=== PATIENT | female | born 1955 | race Caucasian/White ===

== ENCOUNTER → 2023-07-19 10:36 | Outpatient (REF) | payer MEDICARE, OTHER, SELFPAY ==
[2023-07-19 11:20] LABS: % Basophils 0.5 % (0-2); % Eosinophils 1.2 % (0-6); % Immature Granulocytes 0.3 % (0-0.5); % Lymphocytes 15.9 % (20.5-51.1); % Monocytes 5.5 % (1.7-9.3); % Neutrophils 76.6 % (42.2-75.2); Absolute Basophils 0.1 10^3/uL (0-0.2); Absolute Eosinophils 0.2 10^3/uL (0-0.7); Absolute Lymphocytes 1.9 10^3/uL (1.2-3.4); Absolute Monocytes 0.7 10^3/uL (0.1-0.6); Absolute Neutrophils 9.3 10^3/uL (1.4-6.5); Hematocrit 37.9 % (37.0-47.0); Mean Corp Hgb Conc. 31.7 g/dL (33.0-37.0); Mean Corpuscular Hgb 28.8 pg (27.0-31.0); Mean Corpuscular Volume 91.1 fL (81.0-99.0); Mean Platelet Volume 11.2 fL (7.4-10.4); Nucleated Red Blood Cells % 0 %; Platelet Count 261 10^3/uL (130-400); Red Blood Cell Count 4.16 10^6/uL (4.20-5.40); Red Cell Dist. Width 14.5 % (11.5-14.5); White Blood Cell Count 12.2 10^3/uL (4.8-10.8)
[2023-07-19 13:18] LABS: ALT (SGPT) 17 U/L (0-35); AST (SGOT) 23 U/L (14-36); Albumin 3.5 g/dl (3.5-5.0); Alkaline Phosphatase 128 U/L (38-126); Blood Urea Nitrogen 34 mg/dl (7-17); Calcium 9.5 mg/dl (8.4-10.2); Carbon Dioxide 22 mmol/L (22-30); Chloride 109 mmol/L (98-107); Glucose 83 mg/dl (70-99); Potassium 4.2 mmol/L (3.5-5.1); Sodium 140 mmol/L (135-145); Total Bilirubin 1.1 mg/dl (0.2-1.3); Total Protein 6.1 g/dl (6.3-8.2); eGFR 44.51
[2023-07-21 11:07] LABS: Myeloperoxidase Antibody 49 AU/mL (0-19); Serine Protease-3, IgG 0 AU/mL (0-19)
== END ==
LOC: REG 10:36
PROVIDERS: ATTENDING PHYSICIAN Internal Medicine Rheumatology; FAMILY PHYSICIAN Internal Medicine; OTHER PHYSICIAN Internal Medicine Critical Care Medicine; REFERRING PHYSICIAN Internal Medicine Cardiovascular Disease
DX: M31.7 Microscopic polyangiitis (principal); M54.2 Cervicalgia
CPT/HCPCS: 36415; 72052; 80053; 83516; 85025; 86140

== ENCOUNTER → 2023-07-20 09:45 | Outpatient (REF) | payer MEDICARE, OTHER, SELFPAY ==
[2023-07-20 20:09] LABS: Urine Albumin Negative (Neg - Trace); Urine Bilirubin Negative (Negative); Urine Character Clear (Clear); Urine Color Yellow; Urine Glucose Negative (Negative); Urine Ketone Negative (Negative); Urine Leukocyte Trace (Negative); Urine Nitrite Negative (Negative); Urine Occult Blood Negative (Negative); Urine Specific Gravity 1.015 (<1.030); Urine Urobilinogen Negative (Neg - 1+)
[2023-07-20 20:23] LABS: Urine Bacteria Few (Negative); Urine Red Blood Cell 0-2 /HPF (0-2); Urine White Cell 26-30 /HPF (0-5)
== END ==
LOC: CLAB 09:45
PROVIDERS: ATTENDING PHYSICIAN Physician Assistant
DX: R32 Unspecified urinary incontinence (principal)
CPT/HCPCS: 81003; 81015; 87086; 87088; 87186

== ENCOUNTER → 2023-08-02 10:12 | Outpatient (REF) | payer MEDICARE, OTHER, SELFPAY ==
--- NOTE | 2023-08-02 12:02 | CARDSERVDEF ---
Echocardiogram with Definity completed after protocol screening completed. Allergies verified.
Patent IV site: _new site 24 P on 3rd attempt by [email or web address] after RN unable to cannulate tiny veins____
IV site flushed with 0.9% NaCl pre and post administration.
Diluted bolus method utilized to enhance visualization of ventricular abrams.
Total volume given: __6.0__ mL
Patient tolerated all procedures well without complications.
site dcd at completion of test.
== END ==
LOC: RCS 10:12
PROVIDERS: ATTENDING PHYSICIAN Internal Medicine Cardiovascular Disease; FAMILY PHYSICIAN Internal Medicine; OTHER PHYSICIAN Internal Medicine Rheumatology; REFERRING PHYSICIAN Internal Medicine Critical Care Medicine
DX: I49.3 Ventricular premature depolarization (principal)
CPT/HCPCS: 93306; 93307; Q9957

== ENCOUNTER → 2023-08-17 11:00 | Outpatient (REF) | payer MEDICARE, OTHER, SELFPAY ==
[2023-08-17 12:14] LABS: INR 1.09; PT 14.1 Sec (11.4-14.6)
[2023-08-17 12:15] LABS: APTT 29.7 Sec (23.4-35.0)
[2023-08-17 13:18] LABS: Free T4 1.08 ng/dl (0.78-2.19)
[2023-08-17 13:26] LABS: TSH 0.15 uIU/ml (0.47-4.68)
== END ==
LOC: REG 11:00
PROVIDERS: ATTENDING PHYSICIAN Internal Medicine; OTHER PHYSICIAN Internal Medicine Cardiovascular Disease; OTHER PHYSICIAN Internal Medicine Critical Care Medicine; OTHER PHYSICIAN Internal Medicine Hematology & Oncology; OTHER PHYSICIAN Internal Medicine Rheumatology
DX: T14.8XXA Other injury of unspecified body region, initial encounter (principal); Z79.899 Other long term (current) drug therapy
CPT/HCPCS: 36415; 84439; 84443; 85610; 85730

== ENCOUNTER → 2023-08-28 12:56 | Outpatient (REF) | payer MEDICARE, OTHER, SELFPAY | LOC: HWRAD 12:56 | PROVIDERS: ATTENDING PHYSICIAN Obstetrics & Gynecology; FAMILY PHYSICIAN Internal Medicine | DX: Z78.0 Asymptomatic menopausal state (principal); Z12.31 Encounter for screening mammogram for malignant neoplasm of breast | CPT/HCPCS: 77063; 77067; 77080 ==

== ENCOUNTER → 2023-10-20 10:45 | Outpatient (REF) | payer MEDICARE, OTHER, SELFPAY ==
[2023-10-20 11:38] LABS: % Basophils 0.7 % (0-2); % Eosinophils 1.2 % (0-6); % Immature Granulocytes 0.5 % (0-0.5); % Lymphocytes 16.9 % (20.5-51.1); % Monocytes 5.1 % (1.7-9.3); % Neutrophils 75.6 % (42.2-75.2); Absolute Basophils 0.1 10^3/uL (0-0.2); Absolute Eosinophils 0.2 10^3/uL (0-0.7); Absolute Immature Granulocytes 0.1 10^3/uL (0-0.05); Absolute Lymphocytes 2.2 10^3/uL (1.2-3.4); Absolute Monocytes 0.7 10^3/uL (0.1-0.6); Absolute Neutrophils 9.9 10^3/uL (1.4-6.5); Hematocrit 34.4 % (37.0-47.0); Mean Corpuscular Hgb 28.4 pg (27.0-31.0); Mean Corpuscular Volume 88.7 fL (81.0-99.0); Mean Platelet Volume 10.9 fL (7.4-10.4); Nucleated Red Blood Cells % 0 %; Platelet Count 403 10^3/uL (130-400); Red Blood Cell Count 3.88 10^6/uL (4.20-5.40); Red Cell Dist. Width 14.6 % (11.5-14.5); White Blood Cell Count 13.1 10^3/uL (4.8-10.8)
[2023-10-20 12:24] LABS: ALT (SGPT) 13 U/L (0-35); AST (SGOT) 22 U/L (14-36); Albumin 3.9 g/dl (3.5-5.0); Alkaline Phosphatase 133 U/L (38-126); Blood Urea Nitrogen 20 mg/dl (7-17); Calcium 9.6 mg/dl (8.4-10.2); Carbon Dioxide 27 mmol/L (22-30); Chloride 104 mmol/L (98-107); Glucose 88 mg/dl (70-99); Potassium 4.6 mmol/L (3.5-5.1); Sodium 140 mmol/L (135-145); Total Bilirubin 0.9 mg/dl (0.2-1.3); Total Protein 6.6 g/dl (6.3-8.2); eGFR > 60.00
[2023-10-20 16:26] LABS: Urine Albumin Negative (Neg - Trace); Urine Bilirubin Negative (Negative); Urine Character Clear (Clear); Urine Color Yellow; Urine Glucose Negative (Negative); Urine Ketone Negative (Negative); Urine Leukocyte Trace (Negative); Urine Nitrite Positive (Negative); Urine Occult Blood Negative (Negative); Urine Specific Gravity 1.015 (<1.030); Urine Urobilinogen Negative (Neg - 1+)
[2023-10-20 16:41] LABS: Urine Bacteria Many (Negative); Urine White Cell 16-20 /HPF (0-5)
[2023-10-20 16:49] LABS: Urine Red Blood Cell 0-2 /HPF (0-2)
== END ==
LOC: REG 10:45
PROVIDERS: ATTENDING PHYSICIAN Internal Medicine; OTHER PHYSICIAN Internal Medicine Cardiovascular Disease; OTHER PHYSICIAN Internal Medicine Critical Care Medicine; OTHER PHYSICIAN Internal Medicine Rheumatology
DX: I10 Essential (primary) hypertension (principal); I42.9 Cardiomyopathy, unspecified
CPT/HCPCS: 36415; 80053; 81003; 81015; 85025

== ENCOUNTER → 2023-11-06 12:43 | Outpatient (REF) | payer MEDICARE, OTHER, SELFPAY | LOC: WOUND 12:43 | PROVIDERS: ATTENDING PHYSICIAN Surgery; FAMILY PHYSICIAN Internal Medicine | DX: L97.212 Non-pressure chronic ulcer of right calf with fat layer exposed (principal); L97.222 Non-pressure chronic ulcer of left calf with fat layer exposed; I50.22 Chronic systolic (congestive) heart failure; N18.9 Chronic kidney disease, unspecified; D89.89 Other specified disorders involving the immune mechanism, not elsewhere classified; D80.1 Nonfamilial hypogammaglobulinemia; J45.40 Moderate persistent asthma, uncomplicated | CPT/HCPCS: 99204 ==

== ENCOUNTER → 2023-11-14 11:00 | Outpatient (REF) | payer MEDICARE, OTHER, SELFPAY | LOC: WOUND 11:00 | PROVIDERS: ATTENDING PHYSICIAN Surgery; FAMILY PHYSICIAN Internal Medicine | DX: L97.212 Non-pressure chronic ulcer of right calf with fat layer exposed (principal); L97.222 Non-pressure chronic ulcer of left calf with fat layer exposed; I50.22 Chronic systolic (congestive) heart failure; N18.9 Chronic kidney disease, unspecified; D72.829 Elevated white blood cell count, unspecified; D89.89 Other specified disorders involving the immune mechanism, not elsewhere classified; D80.1 Nonfamilial hypogammaglobulinemia; J45.40 Moderate persistent asthma, uncomplicated | CPT/HCPCS: 99213 ==

== ENCOUNTER 2023-11-21 06:26 | Day surgery (SDC) | payer MEDICARE, OTHER, SELFPAY ==
[2023-11-21 08:00] VITALS: BMI 30.3
[2023-11-21 08:15] VITALS: BP 128/60
--- NOTE | 2023-11-21 08:15 | W.SUR.PREOP ---
Pre-Operative Surgical Note
-
I have examined this patient prior to the performance of the scheduled procedure.
The patient's condition is unchanged from the time of the current History and
Physical and the patient is able to undergo the scheduled procedure.
[2023-11-21 08:24] VITALS: BMI 30.3
[2023-11-21] MEDS: NORMOSOL-R/PLASMALYTE-A 1000 IV (08:29)
[2023-11-21] MEDS: TYLENOL 1000 MG PO (08:29)
[2023-11-21 10:40] VITALS: BP 116/56; BP_SYST 12
[2023-11-21 10:55] VITALS: BP 130/64; BP_SYST 12
[2023-11-21 11:10] VITALS: BP 128/69; BP_SYST 17
[2023-11-21 11:20] VITALS: BP 128/69
[2023-11-21 11:50] VITALS: BP 150/81
--- NOTE | 2023-11-21 12:09 | W.IMMPOSTOP ---
Surgical Immed Post Op Note
-
Primary Surgeon: NAYA Ferrera MD
Assisting Surgeon:
Pre-op Diagnosis: bilateral lower extremity wounds, nonpressure
Post-op Diagnosis: same
Procedure Performed: bilateral lower extremity split-thickness skin graft donor site left thigh
Anesthesia Type: sedation
Specimen / Cultures: none
Estimated Blood Loss: 3 cc
Complications: none
Operative Findings: as expected
--- NOTE | 2023-11-21 12:10 | OR.RPT ---
Operative Report
Operative Report
date of surgery: 11/21/2023
Surgeon: NAYA Ferrera MD
Preoperative diagnosis: Bilateral lower extremity wounds, nonpressure ulcers
Postoperative diagnosis: Same
procedure:
1. Wound bed preparation bilateral lower extremities ( 4.5 x 6 cm on left, 3 x 1.5 cm on right)
2. Split-thickness skin grafting to the bilateral lower extremities ( 4.5 x 6 cm on left, 3 x 1.5 cm on right)
3. Application of negative pressure wound dressing ( 4.5 x 6 cm on left, 3 x 1.5 cm on right)
anesthesia: Sedation Bilateral negative pressure dressings were applied after the application of bacitracin ointment and Adaptic. The patient tolerated the procedure well was performed without complication all counts were correct. She was taken
the PACU for further care
Complications: None
EBL: 3 cc
Indications for procedure: Patient is a 67-year-old female who suffered traumatic lacerations of bilateral lower extremities after falling on an escalator. She was managed in wound care and had bilateral granulating wound beds. She was referred to
md for consideration of split-thickness skin grafting. We have a discussion about the role of split thickness skin grafting and its ability to abbreviate the wound healing process. The wound will heal on its own however it may take more time with
local wound care. Risks of skin grafting include donor site scar on the thigh, graft failure, infection, hematoma, seroma. She understood these risk desire to proceed
Procedure in detail: Patient was identified preoperatively and the surgical site was confirmed to be the bilateral lower extremities. All questions were answered consents were confirmed. The left thigh was desired donor site for the patient and
this was marked out accordingly. Patient was then taken back to the operating placed supine on table. Anesthesia was induced and sedation was accomplished. The patient's bilateral lower extremities were then prepped and draped in the usual
sterile fashion using Betadine solution. Timeout for patient safety was performed and was confirmed to preoperative at antibiotics have been administered. Procedure began with injection of a 50-50 mixture of 1% lidocaine with epinephrine and half
percent Marcaine into the left thigh donor site as well as the recipient sites of the bilateral pretibial shins. The wounds were then measured as indicated above. Wound bed prep then commenced with excisional techniques and tangential shaving
using a 10 blade. Following hemostasis, the appropriate guard was selected and a dermatome was used to harvest a split-thickness skin graft from the left thigh. This was then split and between the left and right donor sites. On the left
a 4.5 x 6 cm skin Glatt graft was applied and sutured in place with a series of 4-0 chromic's. On the right a 3 x 1.5 cm skin graft was applied and sutured in place with a series of 4-0 chromic's.
negative pressure was then applied bilaterally over the wounds. Adaptic and bacitracin were placed over the graft. Patient tolerated the procedure well, was performed without complication, all counts were correct. Patient was taken the PACU for
further care
== END 2023-11-21 12:10 | disposition home or self-care (01) ==
LOC: SDS 06:26
PROVIDERS: ATTENDING PHYSICIAN Surgery Plastic and Reconstructive Surgery
PROC: 0HRKX74 Replacement of Right Lower Leg Skin with Autologous Tissue Substitute, Partial Thickness, External Approach (ICD-10-PCS; 2023-11-21)
PROC: 0HRLX74 Replacement of Left Lower Leg Skin with Autologous Tissue Substitute, Partial Thickness, External Approach (ICD-10-PCS; 2023-11-21)
DX: L97.829 Non-pressure chronic ulcer of other part of left lower leg with unspecified severity (principal); L97.819 Non-pressure chronic ulcer of other part of right lower leg with unspecified severity
CPT/HCPCS: 15100; 15002; 87070; C1776

== ENCOUNTER → 2024-02-09 16:58 | Outpatient (REF) | payer MEDICARE, OTHER, SELFPAY | LOC: RAD 16:58 | PROVIDERS: ATTENDING PHYSICIAN Internal Medicine Cardiovascular Disease; FAMILY PHYSICIAN Internal Medicine | DX: E78.5 Hyperlipidemia, unspecified (principal); M31.7 Microscopic polyangiitis | CPT/HCPCS: 75571 ==

== ENCOUNTER → 2024-03-08 06:24 | Day surgery (SDC) | payer MEDICARE, OTHER, SELFPAY | LOC: GI 06:24 | PROVIDERS: ATTENDING PHYSICIAN Specialist; FAMILY PHYSICIAN Internal Medicine | DX: Z12.11 Encounter for screening for malignant neoplasm of colon (principal); Z86.0101 Personal history of adenomatous and serrated colon polyps; K57.30 Diverticulosis of large intestine without perforation or abscess without bleeding; D12.2 Benign neoplasm of ascending colon; D12.5 Benign neoplasm of sigmoid colon | CPT/HCPCS: 45385; 88305 ==

== ENCOUNTER → 2024-07-19 12:06 | Outpatient (REF) | payer MEDICARE, OTHER, SELFPAY ==
[2024-07-19 13:09] LABS: % Basophils 0.4 % (0-2); % Eosinophils 1.7 % (0-6); % Immature Granulocytes 0.2 % (0-0.5); % Lymphocytes 14.4 % (20.5-51.1); % Monocytes 6.1 % (1.7-9.3); % Neutrophils 77.2 % (42.2-75.2); Absolute Basophils 0.1 10^3/uL (0-0.2); Absolute Eosinophils 0.2 10^3/uL (0-0.7); Absolute Lymphocytes 1.9 10^3/uL (1.2-3.4); Absolute Monocytes 0.8 10^3/uL (0.1-0.6); Absolute Neutrophils 9.9 10^3/uL (1.4-6.5); Hematocrit 38.9 % (37.0-47.0); Hemoglobin 12.3 g/dL (12.0-16.0); Mean Corp Hgb Conc. 31.6 g/dL (33.0-37.0); Mean Corpuscular Hgb 28.8 pg (27.0-31.0); Mean Corpuscular Volume 91.1 fL (81.0-99.0); Mean Platelet Volume 12.4 fL (7.4-10.4); Nucleated Red Blood Cells % 0 %; Platelet Count 242 10^3/uL (130-400); Red Blood Cell Count 4.27 10^6/uL (4.20-5.40); Red Cell Dist. Width 15.3 % (11.5-14.5); White Blood Cell Count 12.9 10^3/uL (4.8-10.8)
[2024-07-19 13:46] LABS: ALT (SGPT) 32 U/L (0-35); AST (SGOT) 38 U/L (14-36); Albumin 3.7 g/dl (3.5-5.0); Alkaline Phosphatase 137 U/L (38-126); Blood Urea Nitrogen 22 mg/dl (7-17); Calcium 9.3 mg/dl (8.4-10.2); Carbon Dioxide 27 mmol/L (22-30); Chloride 111 mmol/L (98-107); Glucose 84 mg/dl (70-99); Potassium 4.4 mmol/L (3.5-5.1); Sodium 141 mmol/L (135-145); Total Bilirubin 0.8 mg/dl (0.2-1.3); Total Protein 6.1 g/dl (6.3-8.2); Uric Acid 5.4 mg/dl (2.5-6.2); eGFR 54.06
== END ==
LOC: REG 12:06
PROVIDERS: ATTENDING PHYSICIAN Internal Medicine Rheumatology; FAMILY PHYSICIAN Internal Medicine; OTHER PHYSICIAN Internal Medicine Cardiovascular Disease; OTHER PHYSICIAN Internal Medicine Critical Care Medicine; OTHER PHYSICIAN Obstetrics & Gynecology
DX: I77.6 Arteritis, unspecified (principal); M1A.9XX0 Chronic gout, unspecified, without tophus (tophi); M31.7 Microscopic polyangiitis; R79.82 Elevated C-reactive protein (CRP); Z51.81 Encounter for therapeutic drug level monitoring
CPT/HCPCS: 36415; 80053; 83516; 84550; 85025; 86140

== ENCOUNTER → 2024-08-28 16:07 | Outpatient (REF) | payer MEDICARE, OTHER, SELFPAY | LOC: WDC 16:07 | PROVIDERS: ATTENDING PHYSICIAN Obstetrics & Gynecology; FAMILY PHYSICIAN Internal Medicine | DX: Z12.31 Encounter for screening mammogram for malignant neoplasm of breast (principal) | CPT/HCPCS: 77063; 77067 ==

== ENCOUNTER → 2024-09-02 13:55 | Outpatient (REF) | payer MEDICARE, OTHER, SELFPAY ==
--- NOTE | 2024-09-02 15:07 | CARDSERVDEF ---
Echocardiogram with Definity completed after protocol screening completed. Allergies verified.
Patent IV site: 22g angio inserted in RAC (after failed attempt in [facility])
IV site flushed with 0.9% NaCl pre and post administration.
Diluted bolus method utilized to enhance visualization of ventricular abrams.
Total volume given: 3 mL
Patient tolerated all procedures well without complications.
Once completed, IV d/c'd and bandage applied after pressure held.
== END ==
LOC: RCS 13:55
PROVIDERS: ATTENDING PHYSICIAN Internal Medicine Cardiovascular Disease; FAMILY PHYSICIAN Internal Medicine
DX: I50.9 Heart failure, unspecified (principal); I42.8 Other cardiomyopathies; I10 Essential (primary) hypertension; I49.3 Ventricular premature depolarization
CPT/HCPCS: 93306

== ENCOUNTER → 2024-10-18 15:39 | Outpatient (REF) | payer MEDICARE, OTHER, SELFPAY | LOC: RAD 15:39 | PROVIDERS: ATTENDING PHYSICIAN Internal Medicine | DX: R60.0 Localized edema (principal); Z87.828 Personal history of other (healed) physical injury and trauma | CPT/HCPCS: 93971 ==

== ENCOUNTER → 2024-11-11 13:02 | Outpatient (REF) | payer MEDICARE, OTHER, SELFPAY | LOC: RAD 13:02 | PROVIDERS: ATTENDING PHYSICIAN Internal Medicine Critical Care Medicine; FAMILY PHYSICIAN Internal Medicine; OTHER PHYSICIAN Internal Medicine Cardiovascular Disease; OTHER PHYSICIAN Internal Medicine Rheumatology | DX: R91.8 Other nonspecific abnormal finding of lung field (principal) | CPT/HCPCS: 71250 ==